=== PATIENT | female | born 1935 | race Caucasian/White ===

== ENCOUNTER 2016-05-20 10:18 | Emergency (ER) | payer MEDICARE, OTHER ==
[~2016-05-20] VITALS: Wt 109.0 kg
--- NOTE | 2016-05-20 12:12 | ERD ---
ER Documentation Chief Complaint Date/Time DATE: 05/20/16 TIME: 12:10 Chief Complaint COUGH AND CONGESTIN FOR THE PAST WK. NO FEVERS, NO DISTRESS NOTED HPI This is an 80-year-old female who presents to the emergency department today complaining of cough for the past 5 days. States her cough is worse at night. Denies any medical history with the exception of arthritis. States she has taken Robitussin and allergy pills. States that she thinks she had pneumonia back in February. Denies any fevers or chills, nausea vomiting or diarrhea. ROS All systems reviewed and are negative except as per history of present illness. Medications Home Meds Active Scripts Dextromethorphan Hb-Promethazine Hcl (Promethazine DM Syrup) 473 Ml Syrup, 5 ML PO Q6H Y for COUGH, #4 OZ Prov:CHE MYLES PA-C 05/20/16 Cetirizine Hcl* (Zyrtec*) 10 Mg Capsule, 10 MG PO DAILY, #14 TAB.CHEW Prov:CHE MYLES PA-C 05/20/16 Azithromycin* (Zithromax*) 250 Mg Tablet, 250 MG PO .ZPACK DIRECTED, #6 TAB TAKE 500 MG (2 TABS) THE FIRST DAY THEN 250 MG (1 TAB) DAYS 2-5 Prov:CHE MYLES PA-C 05/20/16 Allergies Allergies: Coded Allergies: No Known Allergy (Unverified Allergy, Severe, 02/10/06) Physical Exam Vitals Vital Signs Date Time Temp Pulse Resp B/P Pulse Ox O2 Delivery O2 Flow Rate FiO2 05/20/16 10:37 97.9 101 20 108/78 97 Physical Exam Const: No acute distress Head: Atraumatic Eyes: Normal Conjunctiva ENT: Normal External Ears, Nose and Mouth. Neck: Full range of motion..~ No meningismus. Resp: Clear to auscultation bilaterally. No absent breath sounds. No wheezing. Cardio: Regular rate and rhythm, no murmurs Skin: No petechiae or rashes Neur: Awake and alert Psych: Normal Mood and Affect Results 24 hrs DIAGNOSTIC IMAGING REPORT Patient: RITA MCCONNELL : 1935 Age: 80 Sex: F MR #: [id number] DOS: 05/20/16 0000 Ordering MD: CHE MYLES PA-C Location: [facility] Room/Bed: PROCEDURE: XR Chest. CLINICAL INDICATION: Cough TECHNIQUE: Single AP portable chest COMPARISON: None. FINDINGS: The cardiomediastinal silhouette is within normal limits of size . Atherosclerotic calcification of the aorta. hazy opacity at the left lung base which may reflect small pleural effusion, atelectasis or overlap. A lateral view would be helpful for further evaluation. The lungs are otherwise clear without pleural effusion or focal consolidation. No pneumothorax. The osseous structures and soft tissues are unremarkable. IMPRESSION: 1. Hazy opacity at the left lung base which may represent small pleural effusion , atelectasis or overlap. A lateral view would be helpful for further evaluation. No other acute intrathoracic abnormality.. RPTAT:AAJJ Physician Bernadette Date Time Electronically viewed and signed by Physician Bernadette on 05/20/2016 13:11 BENJAMIN/ CC: CHE MYLES PA-C Procedures/MDM This is a 80-year-old female who presents to the emergency department today for cough for the past 5 days. Patient has a history of pneumonia back in February and therefore did obtain images today. Chest x-ray shows a hazy opacity at the left lung base which may represent small pleural effusion, atelectasis or overlap. Lateral view was recommended however the lungs are otherwise clear without pleural effusion or focal consolidation. No evidence of pneumothorax. Patient is afebrile and otherwise well-appearing. Her oxygen saturation is 97% . She is very mildly tachycardic. Low suspicion for pneumonia, PE, abscess, pneumothorax. Discussed the patient with Dr. Shrestha and the decision was made to treat the patient for possible pneumonia versus bronchitis versus URI. Patient will be given a prescription for Zyrtec, promethazine and azithromycin. At this time the patient is stable for discharge and outpatient management. Patient should follow up with their PCP in the next 1-2 days. They may return to the emergency department sooner for any persistent or worsening of symptoms. Patient understood and agreed with the plan. Departure Diagnosis: Primary Impression: Cough Condition: CHE Bowles PA-C May 20, 2016 12:12
--- NOTE | 2016-05-20 13:11 | RADRPT ---
PROCEDURE: XR Chest. CLINICAL INDICATION: Cough TECHNIQUE: Single AP portable chest COMPARISON: None. FINDINGS: The cardiomediastinal silhouette is within normal limits of size . Atherosclerotic calcification of the aorta. hazy opacity at the left lung base which may reflect small pleural effusion, atelectasi s or overlap. A lateral view would be helpful for further evaluation. The lungs are otherwise taj r without pleural effusion or focal consolidation. No pneumothorax. The osseous structures and soft tissues are unremarkable. IMPRESSION: 1. Hazy opacity at the left lung base which may represent small pleural effusion, atelectasis or ove rlap. A lateral view would be helpful for further evaluation. No other acute intrathoracic abnorma lity.. RPTAT:AAJJ Physician Bernadette Date Time Electronically viewed and signed by Physician Bernadette on 05/20/2016 13:11 BENJAMIN/
[2016-05-20] MEDS ORDERED: CETI10CA PO (13:23)
[2016-05-20] MEDS ORDERED: AZIT250T94 PO (13:23)
[2016-05-20] MEDS ORDERED: D-ME473S18 PO (13:24)
[2016-05-20 13:50] VITALS: BP 110/65; PULSE 105; RESP 18
== END 2016-05-20 13:53 | disposition home or self-care (01) ==
LOC: FTE 10:18
DX: R05 Cough (principal)
CPT/HCPCS: 71010

== ENCOUNTER 2017-04-21 16:42 | Emergency (ER) | END 2017-04-21 22:52 | disposition home or self-care (01) ==

== ENCOUNTER 2018-07-16 09:53 | Emergency (ER) | payer MEDICARE, OTHER ==
[~2018-07-16] VITALS: Ht 165.1 cm; Wt 70.0 kg
[~2018-07-16 09:53] MED LIST: AZIT250T PO; CETI10CA PO; D-ME473S18 PO
[2018-07-16 09:55] VITALS: Ht 165.1 cm; Wt 70.0 kg
[2018-07-16] MEDS ORDERED: LIDOCAINE 1% (MDV) 20 ML INJ SC ONE (10:30)
--- NOTE | 2018-07-16 12:37 | ERD ---
ER Documentation Chief Complaint Chief Complaint trip and fall has laceration to the back of head no Ko takes ASA HPI This is an 82-year-old female with a past medical history of arthritis, on a baby aspirin daily, who is presenting with a head trauma. The patient was getting ready to get into the backseat of a car when she lost her balance and fell backward hitting the left side of her head on the pavement. The patient did not lose consciousness. She is able to get up without difficulty but there was a expanding hematoma that was concerning to the patient's friend who ultimately convinced her to come to the emergency department. The patient does have a soreness around the area of the hematoma. She otherwise denies headache or vision changes. She denies any neck pain or back pain. She does not endorse any other trauma or injury. The patient's last tetanus shot was 3 years ago. The patient denies feeling sick recently. The patient denies fever or chills. The patient denies lightheadedness or dizziness. The patient has had no chest pain or trouble breathing. The patient denies nausea or vomiting. The patient denies abdominal pain. The patient denies changes to bowel movements or urin ation. The patient has had no focal deficits. The patient has had no weakness or numbness or tingling to the face or extremities. ROS All systems reviewed and are negative except as per history of present illness. Medications Home Meds Active Scripts Dextromethorphan Hb-Promethazine Hcl (Promethazine DM Syrup) 473 Ml Syrup, 5 ML PO Q6H PRN for COUGH, #4 OZ Prov:CHE MYLES PA-C 05/20/16 Cetirizine Hcl* (Zyrtec*) 10 Mg Capsule, 10 MG PO DAILY, #14 TAB.CHEW Prov:CHE MYLES PA-C 05/20/16 Azithromycin* (Zithromax*) 250 Mg Tablet, 250 MG PO .ADRIÁNCK DIRECTED, #6 TAB TAKE 500 MG (2 TABS) THE FIRST DAY THEN 250 MG (1 TAB) DAYS 2-5 Prov:CHE MYLES PA-C 05/20/16 Allergies Allergies: Coded Allergies: No Known Allergy (Unverified Allergy, Severe, 02/10/06) PMhx/Soc History of Surgery: Yes (Tonsillectomy, previous orthopedic surgeries) Anesthesia Reaction: No Hx Neurological Disorder: No Hx Respiratory Disorders: No Hx Cardiac Disorders: No Hx Psychiatric Problems: No Hx Miscellaneous Medical Probl: Yes (Arthritis) Hx Alcohol Use: No Hx Substance Use: No Hx Tobacco Use: No Smoking Status: Never smoker FmHx Family History: No diabetes Physical Exam Vitals Vital Signs Date Temp Pulse Resp B/P (MAP) Pulse Ox O2 O2 Flow FiO2 Time Delivery Rate 07/16/18 97.8 90 18 168/89 97 09:55 (115) Physical Exam Const: No apparent distress, well-developed, well-nourished Head: Normocephalic. Left occipital and parietal hematoma, no laceration requiring repair. Eyes: Normal Conjunctiva. Extraocular movements intact. Pupils equal, round and reactive to light ENT: Normal External Ears, Nose and Mouth. Neck: Full range of motion without pain. No meningismus. No spinal tenderness. Resp: Clear to auscultation bilaterally, No wheezes, rales or rhonchi Cardio: Regular rate and rhythm. No murmurs, rubs or gallops Abd: Soft, non tender, non distended. Normal bowel sounds Skin: No petechiae or rashes Back: No midline tenderness. No CVA tenderness Ext: No cyanosis, or edema Neur: Awake and alert, oriented 4. Cranial nerves intact. No facial droop. Normal strength, sensation and coordination. Psych: Normal Mood and Affect Results 24 hrs Current Medications Medications Dose Sig/Howard Start Time Status Last (Trade) Ordered Route PRN Stop Time Admin Dose Reason Admin Lidocaine 20 ml ONCE ONCE 07/16/18 DC (Xylocaine SC 10:30 07/16/18 1% (Mdv) 20 10:30 ml) Procedures/MDM MDM The patient's presentation warrants further investigation. Previous medical records, if available, were reviewed. IMAGING Imaging and Radiology interpretation reviewed. CT head COMPARISON: 04/21/2017 FINDINGS: The sulcal gyral pattern is unremarkable without evidence of effacement. The owusu-white matter differentiation is intact. There is age compatible cortical atrophy with proportional dilatation of the lateral ventricles. Mild deep white matter ischemic changes are again seen. No masses, edema or shift is identified. There are no intraparenchymal or extraaxial fluid collections. The visualized paranasal sinuses and mastoid air cells are well-aerated. The skull base and calvarium are intact. There is a large left parietal scalp hematoma. IMPRESSION: 1. No acute intracranial abnormalities are identified. 2. There is a large left parietal scalp hematoma. 3. Age compatible cortical atrophy with proportional dilatation of the lateral ventricles. 4. Mild deep white matter ischemic changes are again seen. Electronically viewed and signed by Guillermo Ortega Physician on 07/16/2018 11:01 TREATMENT/DISPOSITION The patient presents after a trauma. The patient did sustain a hematoma and abrasion to the left occiput. Bacitracin was applied. The wound was wrapped with gauze. There is no laceration requiring repair. The patient does not require a tetanus shot today. The patient was evaluated fully without evidence of emergent posttraumatic pathology. The patient's CT imaging of the head is unremarkable for acute pathology. The patient has no focal deficits. I've low suspicion for i ntracranial pathology. I have low suspicion for cerebral ischemia or intracranial hemorrhage. The patient has no cervical spine tenderness. He can move his neck in all directions without any pain. As stated above, he does not have any focal deficits. He is not altered or intoxicated. He does not have any distracting injuries. The patient's cervical spine was clinically cleared using the Nexus C-spine rule. The patient does not have any saddle anesthesia. He has not been incontinent of urine or stool. He has not had any retention of urine or stool. I have low suspicion for spinal cord injury. There is no evidence of cardiothoracic or abdominal injury. I have low suspicion for extremity injury. There is no evidence of any penetrating injuries. DISCHARGE Upon reevaluation of the patient, symptoms have improved. No emergent diagnoses were identified. At this time, I feel that the patient stable for discharge. The patient was instructed to follow-up with a primary care physician in 1-3 days. The patient will be given strict precautions with which to return to the emergency department. Prescriptions: None The patient's blood pressure was elevated at greater than 120/80 while in the emergency department. The patient was otherwise stable with no evidence of h ypertensive urgency or emergency. The patient does not require admission for blood pressure control. I have discussed with the patient the risks of hypertension. I have instructed the patient to return to the ER for any new or worsening symptoms including chest pain, shortness of breath, headache, blurred vision, confusion, nausea, vomiting or LOC. I have advised the patient to follow up with the primary care physician for outpatient monitoring and treatment for hypertension in 1-3 days. Disclaimer: Inadvertent spelling and grammatical errors are likely due to EHR/dictation software use and do not reflect on the overall quality of patient care. Note that the electronic time recorded on this note does not necessarily reflect the actual time of the patient encounter. Departure Diagnosis: Primary Impression: Head trauma Encounter type: initial encounter Qualified Codes: S09.90XA - Unspecified injury of head, initial encounter Additional Impressions: Fall from ground level Hematoma of occipital surface of head Encounter type: initial encounter Qualified Codes: S00.83XA - Contusion of other part of head, initial encounter Condition: Stable Patient Instructions: Fall, Mechanical, Head Trauma (Traumatic Brain Injury) Additional Instructions: Thank you for for coming to [facility] for your care today. Please ask your nurse or provider if you have questions about your care today and do not leave until all your questions have been answered. Please use any medications given as directed and follow-up with your doctor (or the doctor you were referred to) in the next 1-3 days. If you do not have a primary care doctor you may follow up at the [facility] or [facility] (listed below). You may also use motrin and tylenol as needed for fever and/or pain unless instructed otherwise by your provider or nurse. Indications for more urgent follow-up have been discussed, but you may return to the Emergency Department at ANY time for any worrisome or worsening symptoms. If you have abdominal pain, please know that no test or exam you received is perfect and you should follow up within 8 hours for continued pain. If you had any imaging studies today, such as an X-Ray or CT Scan, these studies will be reviewed later by a radiologist. You will be called if there are im portant findings that were not identified today, so make sure the contact information you provided at registration is correct. If you received any narcotic pain control medicine today, such as Vicodin, Morphine or Dilaudid, your coordination and judgment may be affected for a number of hours. Please do not drive or operate heavy machinery, and you may want someone to assist you at home. If you were given a prescription for narcotic medication, be aware that it is very addictive- use sparingly and only if necessary. PLEASE SEEK FURTHER EVALUATION AND MANAGEMENT AT YOUR DOCTORS OFFICE WITHIN THE NEXT 1-3 DAYS. IT IS YOUR RESPONSIBILITY TO MAKE AN APPOINTMENT FOR FOLOW-UP CARE. IF YOU HAVE A PRIMARY DOCTOR, PLEASE CALL THEIR OFFICE TO SCHEDULE AN APPOINTMENT FOR FOLLOW UP. IF YOU DO NOT HAVE A PRIMARY DOCTOR YOU CAN CALL OUR PHYSICIAN REFERRAL HOTLINE AT IF YOU CAN NOT AFFORD TO SEE A PHYSICIAN YOU CAN CHOSE FROM THE FOLLOWING [facility] CLINICS: [facility] [address] [facility] [address] [facility] [facility] [address] [facility] [address] [facility] [address] [facility]. [address] ELLA CHAMBERLAIN MD July 16, 2018 12:36
[2018-07-16 12:50] VITALS: BP 148/87; PULSE 78; RESP 16
== END 2018-07-16 12:53 | disposition home or self-care (01) ==
LOC: E/R 09:53
DX: S00.83XA Contusion of other part of head, initial encounter (principal); W18.39XA Other fall on same level, initial encounter; Y92.9 Unspecified place or not applicable
CPT/HCPCS: 70450